=== PATIENT | male | born 1945 | race Caucasian/White ===

== ENCOUNTER 2017-05-18 02:04 | Inpatient (IN) ==
[2017-05-18] MEDS ORDERED: HEPARIN DRIP 25,000 UNITS/500 ML PREMIX IV SCH (07:30)
[2017-05-18] MEDS ORDERED: HEPARIN DRIP 25,000 UNITS/500 ML PREMIX IV ONE (08:32)
[2017-05-18 08:52] LABS: Calcium 8.4 MG/DL (8.5-10.1); Magnesium 2.1 MG/DL (1.8-2.4); Osmolality,Calculated 285.5 MOS/KG (273-304); Potassium 4.4 MMOL/L (3.5-5.1)
[2017-05-18] MEDS ORDERED: SODIUM CHLORIDE 0.9% 1,000 ML IV STA (09:34)
[2017-05-18] MEDS: CLOPIDOGREL 75 MG TABLET PO SCH (09:36)
[2017-05-18] MEDS ORDERED: PANTOPRAZOLE 40 MG TABLET PO ONE (09:38)
[2017-05-18] MEDS ORDERED: METOPROLOL TARTRATE 25 MG TABLET ONE (09:38)
[2017-05-18] MEDS: METOPROLOL TARTRATE 25 MG TABLET PO SCH ×2 (09:42→22:29)
[2017-05-18] MEDS: PANTOPRAZOLE 40 MG TABLET PO SCH (09:42)
[2017-05-18 09:47] LABS: Basophils % 0.1 % (0.0-0.8); Hematocrit 38.2 VOL% (42.0-52.0); Hemoglobin 12.7 GM/DL (14.0-18.0); Immature Granulocytes % 0.6 %; Immature Granulocytes Absolute 0.11 #; Lymphocytes # 1.4 10*3/uL (1.4-4.0); Lymphocytes % 7.7 % (21.2-54.2); Mean Corpuscular HGB Conc 33.2 GM/DL (32-36); Mean Corpuscular Hemoglobin 31 PG (27-34); Mean Corpuscular Volume 92.5 FL (87-102); Mean Platelet Volume 10.1 FL (9.6-12.0); Monocytes # 0.8 10*3/uL (0.11-0.8); Monocytes % 4.4 % (1.7-12.7); Neutrophils # 15.7 10*3/uL (1.4-7.4); Neutrophils % 87.2 % (38.7-73.9); Platelet Count 219 T/CUMM (130-400); Red Blood Count 4.13 MC/CUMM (3.8-5.5); Red Cell Distribution Width 15.1 % (9.3-17.3)
[2017-05-18] MEDS ORDERED: diphenhydrAMINE CAP 25 MG CAPSULE PO ONE (11:17)
[2017-05-18] MEDS ORDERED: POTASSIUM CHLORIDE RIDER 10 MEQ in PREMIX 1 EACH IV PRN (11:17)
[2017-05-18] MEDS ORDERED: MAGNESIUM SULF RIDER 2 GM in PREMIX 1 EACH IV PRN (11:17)
[2017-05-18] MEDS ORDERED: DIAZEPAM 5 MG TABLET PO ONE (11:17)
[2017-05-18] MEDS ORDERED: CLOPIDOGREL 300 MG TABLET PO STA (11:23)
[2017-05-18 11:33] LABS: INR 1.1; PT Patient Result 11.8 SECS
[2017-05-18] MEDS ORDERED: LIDOCAINE 1% 20 ML VIAL ONE (11:47)
[2017-05-18] MEDS ORDERED: ENOXAPARIN 60 MG/0.6 ML SYRINGE ONE (11:47)
[2017-05-18] MEDS ORDERED: HEPARIN/NACL 0.9% 2 UNITS/ML 2,000 ML IV ONE (11:47)
[2017-05-18] MEDS ORDERED: HYDROmorphone 2 MG/1 ML VIAL ONE (11:47)
[2017-05-18] MEDS ORDERED: MIDAZOLAM 2 MG/2 ML VIAL ONE (11:48)
[2017-05-18] MEDS ORDERED: diphenhydrAMINE 50 MG/1 ML VIAL ONE (12:18)
[2017-05-18] MEDS ORDERED: VERAPAMIL 5 MG/2 ML VIAL ONE (12:21)
[2017-05-18] MEDS ORDERED: NITROGLYCERIN DRIP 50 MG/250 ML BOTTLE IV ONE (12:21)
[2017-05-18] MEDS ORDERED: SODIUM CHLORIDE 0.9% 1,000 ML IV SCH (14:00)
[2017-05-18] MEDS: SODIUM CHLORIDE 0.45% 1,000 ML IV SCH (14:20)
[2017-05-18] MEDS: ASPIRIN EC 81 MG TABLET PO SCH (14:20)
[2017-05-18] MEDS: MAGNESIUM CHLORIDE 64 MG TABLET PO SCH (14:21)
[2017-05-18] MEDS ORDERED: clonazePAM 0.5 MG TABLET PO SCH (18:00)
[2017-05-18] MEDS ORDERED: ROSUVASTATIN 20 MG TABLET PO SCH (21:00)
[2017-05-18] MEDS ORDERED: SERTRALINE 50 MG TABLET PO SCH (21:00)
[2017-05-18] MEDS ORDERED: ACETAMINOPHEN 325 MG TABLET PO PRN (21:06)
[2017-05-19] MEDS: SODIUM CHLORIDE 0.45% 1,000 ML IV SCH (01:23)
[2017-05-19] MEDS ORDERED: SODIUM CHLORIDE 0.9% 1,000 ML IV SCH (02:00)
[2017-05-19 04:47] LABS: Basophils % 0.2 % (0.0-0.8); Eosinophils % 0.1 % (0.00-10.9); Hematocrit 38.6 VOL% (42.0-52.0); Hemoglobin 12.7 GM/DL (14.0-18.0); Immature Granulocytes % 0.7 %; Immature Granulocytes Absolute 0.12 #; Lymphocytes # 2.1 10*3/uL (1.4-4.0); Lymphocytes % 11.6 % (21.2-54.2); Mean Corpuscular HGB Conc 32.9 GM/DL (32-36); Mean Corpuscular Hemoglobin 31 PG (27-34); Mean Corpuscular Volume 93.2 FL (87-102); Mean Platelet Volume 10.1 FL (9.6-12.0); Monocytes % 5.5 % (1.7-12.7); Neutrophils # 14.6 10*3/uL (1.4-7.4); Neutrophils % 81.9 % (38.7-73.9); Platelet Count 224 T/CUMM (130-400); Red Blood Count 4.14 MC/CUMM (3.8-5.5); Red Cell Distribution Width 15.4 % (9.3-17.3); White Blood Count 17.9 T/CUMM (4-12)
[2017-05-19 05:15] LABS: Calcium 8.2 MG/DL (8.5-10.1); Magnesium 2.3 MG/DL (1.8-2.4); Osmolality,Calculated 284.3 MOS/KG (273-304); Potassium 4.4 MMOL/L (3.5-5.1)
[2017-05-19 05:28] LABS: Risk Ratio 4.06; VLDL CHOLESTEROL 24.2 MG/DL
[2017-05-19 08:34] VITALS: BP 107/60
[2017-05-19] MEDS: CLOPIDOGREL 75 MG TABLET PO SCH (09:41)
[2017-05-19] MEDS: ASPIRIN EC 81 MG TABLET PO SCH (09:41)
[2017-05-19] MEDS: PANTOPRAZOLE 40 MG TABLET PO SCH (09:41)
[2017-05-19] MEDS: MAGNESIUM CHLORIDE 64 MG TABLET PO SCH (09:42)
[2017-05-19] MEDS: METOPROLOL TARTRATE 25 MG TABLET PO SCH (10:35)
[2017-05-19 10:38] LABS: Apearance,Urine CLEAR (Clear); Bilirubin,Urine Negative (Negative); Blood, Urine Negative (Negative); Glucose,Urine (UA) Negative (Negative); Ketones,Urine Negative (Negative); Mucus,Urine Occasional /LPF (Occasional); Nitrite,Urine Negative (Negative); Protein,Urine Negative; RBC,Urine 1 /HPF (0-4); Squamous Epithelial Cell,Urine Occasional /HPF (0-10); Urine Color Yellow (Yellow); Urine Specific Gravity 1.013 (1.001-1.035); Urine Urobilinogen < 2.0 EU/DL (0.2-1.0); WBC,Urine <1 /HPF (0-6)
== END 2017-05-19 14:21 | disposition home or self-care (01) | DRG 247 ==
LOC: EDBD → EDUNIT# → N.ED 02:04 → N.EDINP 03:25 → N.TELES 13:57
PROC: CLCCHCL (ICD-10-PCS; 2017-05-18 12:45)

== ENCOUNTER 2017-09-30 23:19 | Inpatient (IN) ==
[2017-10-01] MEDS ORDERED: DILTIAZEM 50 MG/10 ML VIAL IV STA (00:24)
[2017-10-01] MEDS ORDERED: DILTIAZEM INJ 100 MG in SODIUM CHLORIDE 0.9% 100 ML IV SCH (00:30)
[2017-10-01 00:31] LABS: Basophils # 0.1 10*3/uL (0.0-0.2); Basophils % 0.7 % (0.0-0.8); Eosinophils # 0.2 10*3/uL (0.0-0.87); Eosinophils % 1.7 % (0.00-10.9); Hematocrit 41.7 VOL% (42.0-52.0); Hemoglobin 13.4 GM/DL (14.0-18.0); Immature Granulocytes % 0.3 %; Immature Granulocytes Absolute 0.04 #; Lymphocytes # 3.1 10*3/uL (1.4-4.0); Mean Corpuscular HGB Conc 32.1 GM/DL (32-36); Mean Corpuscular Hemoglobin 30 PG (27-34); Mean Corpuscular Volume 92.1 FL (87-102); Mean Platelet Volume 9.8 FL (9.6-12.0); Monocytes # 1.2 10*3/uL (0.11-0.8); Neutrophils # 6.9 10*3/uL (1.4-7.4); Neutrophils % 60.3 % (38.7-73.9); Platelet Count 246 T/CUMM (130-400); Red Blood Count 4.53 MC/CUMM (3.8-5.5); Red Cell Distribution Width 15.2 % (9.3-17.3); White Blood Count 11.5 T/CUMM (4-12)
[2017-10-01] MEDS ORDERED: DILTIAZEM 100 MG VIAL.ADD IV ONE (00:31)
[2017-10-01] MEDS ORDERED: SODIUM CHLORIDE 0.9% 100 ML IV ONE (00:33)
[2017-10-01 00:53] LABS: Alanine Aminotransferase 32 U/L (16-61); Albumin 3.8 G/DL (3.4-5.0); Alkaline Phosphatase 72 U/L (45-117); Aspartate Amino Transferase 36 U/L (0-37); Bilirubin,Total < 0.39 MG/DL (0.2-1.0); Blood Urea Nitrogen 24 MG/DL (7-18); Calcium 8.8 MG/DL (8.5-10.1); Glucose 120 MG/DL (74-106); Osmolality,Calculated 281.5 MOS/KG (273-304); Potassium 3.8 MMOL/L (3.5-5.1); Sodium 139 MMOL/L (136-145); Total Protein 7.9 G/DL (6.4-8.3); Troponin I Only < 0.015 NG/ML (0.00-0.045)
[2017-10-01] MEDS ORDERED: SODIUM CHLORIDE 0.9% 1,000 ML IV STA (01:29)
[2017-10-01] MEDS ORDERED: cefTRIAXone 1,000 MG in SODIUM CHLORIDE 0.9% 100 ML IV STA (01:30)
[2017-10-01] MEDS ORDERED: ACETAMINOPHEN 325 MG TABLET PO PRN (02:26)
[2017-10-01] MEDS ORDERED: ONDANSETRON 4 MG/2 ML VIAL IV PRN (02:26)
[2017-10-01] MEDS ORDERED: NITROGLYCERIN SL 0.4 MG TABLET SL PRN (02:30)
[2017-10-01] MEDS ORDERED: SODIUM CHLORIDE 0.9% 1,000 ML IV SCH (02:30)
[2017-10-01 05:59] LABS: Risk Ratio 6.17
[2017-10-01] MEDS: CLOPIDOGREL 75 MG TABLET PO SCH (08:52)
[2017-10-01] MEDS: METOPROLOL TARTRATE 25 MG TABLET PO SCH ×2 (08:52→21:03)
[2017-10-01] MEDS: MULTIVITAMIN (CENTRUM) TABLET PO SCH (08:52)
[2017-10-01] MEDS: PANTOPRAZOLE 40 MG TABLET PO SCH (08:52)
[2017-10-01] MEDS: APIXABAN 5 MG TABLET PO SCH ×2 (08:52→21:03)
[2017-10-01] MEDS: AMIODARONE 200 MG TABLET PO SCH (14:51)
[2017-10-01] MEDS: clonazePAM 0.5 MG TABLET PO SCH (17:39)
[2017-10-01] MEDS: ROSUVASTATIN 20 MG TABLET PO SCH (21:03)
[2017-10-01] MEDS: SERTRALINE 50 MG TABLET PO SCH (21:03)
[2017-10-02] MEDS: AMIODARONE 200 MG TABLET PO SCH ×3 (00:08→21:12)
[2017-10-02 05:15] LABS: Basophils # 0.1 10*3/uL (0.0-0.2); Basophils % 0.6 % (0.0-0.8); Eosinophils # 0.2 10*3/uL (0.0-0.87); Eosinophils % 1.6 % (0.00-10.9); Hematocrit 38.3 VOL% (42.0-52.0); Hemoglobin 12.6 GM/DL (14.0-18.0); Immature Granulocytes % 0.4 %; Immature Granulocytes Absolute 0.04 #; Lymphocytes # 3.2 10*3/uL (1.4-4.0); Mean Corpuscular HGB Conc 32.9 GM/DL (32-36); Mean Corpuscular Hemoglobin 30 PG (27-34); Mean Corpuscular Volume 89.9 FL (87-102); Mean Platelet Volume 9.9 FL (9.6-12.0); Monocytes # 0.9 10*3/uL (0.11-0.8); Monocytes % 8.3 % (1.7-12.7); Neutrophils # 6.1 10*3/uL (1.4-7.4); Neutrophils % 58.1 % (38.7-73.9); Platelet Count 215 T/CUMM (130-400); Red Blood Count 4.26 MC/CUMM (3.8-5.5); Red Cell Distribution Width 15.3 % (9.3-17.3); White Blood Count 10.5 T/CUMM (4-12)
[2017-10-02 05:44] LABS: Calcium 8.5 MG/DL (8.5-10.1); Osmolality,Calculated 285.1 MOS/KG (273-304); Potassium 4.2 MMOL/L (3.5-5.1)
[2017-10-02] MEDS ORDERED: METOPROLOL TARTRATE 5 MG/5 ML VIAL IV ONE ×2 (07:04→07:07)
[2017-10-02] MEDS ORDERED: DILTIAZEM 100 MG VIAL.ADD IV ONE (07:14)
[2017-10-02] MEDS: DILTIAZEM INJ 100 MG in SODIUM CHLORIDE 0.9% 100 ML IV SCH (07:22)
[2017-10-02] MEDS: MULTIVITAMIN (CENTRUM) TABLET PO SCH (09:06)
[2017-10-02] MEDS: CLOPIDOGREL 75 MG TABLET PO SCH (09:06)
[2017-10-02] MEDS: PANTOPRAZOLE 40 MG TABLET PO SCH (09:06)
[2017-10-02] MEDS: METOPROLOL TARTRATE 25 MG TABLET PO SCH ×2 (09:06→21:12)
[2017-10-02] MEDS: APIXABAN 5 MG TABLET PO SCH ×2 (09:06→21:11)
[2017-10-02] MEDS: clonazePAM 0.5 MG TABLET PO SCH (18:27)
[2017-10-02] MEDS ORDERED: PRAMIPEXOLE 0.25 MG TABLET PO SCH (21:00)
[2017-10-02] MEDS: ROSUVASTATIN 20 MG TABLET PO SCH (21:10)
[2017-10-02] MEDS: SERTRALINE 50 MG TABLET PO SCH (21:11)
[2017-10-03 04:42] LABS: Basophils # 0.1 10*3/uL (0.0-0.2); Basophils % 0.6 % (0.0-0.8); Eosinophils # 0.2 10*3/uL (0.0-0.87); Hematocrit 38.2 VOL% (42.0-52.0); Hemoglobin 12.1 GM/DL (14.0-18.0); Immature Granulocytes % 0.4 %; Immature Granulocytes Absolute 0.04 #; Lymphocytes # 3.4 10*3/uL (1.4-4.0); Lymphocytes % 33.1 % (21.2-54.2); Mean Corpuscular HGB Conc 31.7 GM/DL (32-36); Mean Corpuscular Hemoglobin 29 PG (27-34); Mean Corpuscular Volume 92.7 FL (87-102); Monocytes # 0.9 10*3/uL (0.11-0.8); Monocytes % 8.3 % (1.7-12.7); Neutrophils # 5.7 10*3/uL (1.4-7.4); Neutrophils % 55.6 % (38.7-73.9); Platelet Count 212 T/CUMM (130-400); Red Blood Count 4.12 MC/CUMM (3.8-5.5); Red Cell Distribution Width 15.3 % (9.3-17.3); White Blood Count 10.3 T/CUMM (4-12)
[2017-10-03 04:59] LABS: Calcium 8.3 MG/DL (8.5-10.1); Osmolality,Calculated 284.3 MOS/KG (273-304); Potassium 4.1 MMOL/L (3.5-5.1)
[2017-10-03] MEDS: MULTIVITAMIN (CENTRUM) TABLET PO SCH (09:26)
[2017-10-03] MEDS: PANTOPRAZOLE 40 MG TABLET PO SCH (09:26)
[2017-10-03] MEDS: APIXABAN 5 MG TABLET PO SCH (09:26)
[2017-10-03] MEDS: AMIODARONE 200 MG TABLET PO SCH (09:26)
[2017-10-03] MEDS: CLOPIDOGREL 75 MG TABLET PO SCH (09:26)
[2017-10-03] MEDS: DILTIAZEM INJ 100 MG in SODIUM CHLORIDE 0.9% 100 ML IV SCH (09:26)
[2017-10-03] MEDS: METOPROLOL TARTRATE 25 MG TABLET PO SCH (09:26)
[2017-10-03] MEDS ORDERED: ASPIRIN EC 81 MG TABLET PO SCH (12:00)
[2017-10-03 12:10] VITALS: BP 125/65
== END 2017-10-03 15:47 | disposition home or self-care (01) | DRG 309 ==
LOC: N.ED 23:19 → SUATTDRO 10-01 01:34 → N.EDINP 10-01 01:34 → N.TELEN 10-01 02:48
PROVIDERS: ADMIT Internal Medicine; ATTEND Internal Medicine Geriatric Medicine

== ENCOUNTER 2017-10-06 15:31 | Inpatient (IN) ==
[2017-10-06] MEDS ORDERED: SODIUM CHLORIDE 0.9% 500 ML IV STA (16:07)
[2017-10-06] MEDS ORDERED: DILTIAZEM 50 MG/10 ML VIAL IV STA (16:07)
[2017-10-06] MEDS ORDERED: ASPIRIN 325 MG TABLET PO STA (16:07)
[2017-10-06 16:15] LABS: Basophils # 0.1 10*3/uL (0.0-0.2); Basophils % 0.6 % (0.0-0.8); Eosinophils # 0.2 10*3/uL (0.0-0.87); Eosinophils % 1.6 % (0.00-10.9); Hematocrit 40.9 VOL% (42.0-52.0); Hemoglobin 13.6 GM/DL (14.0-18.0); Immature Granulocytes % 0.5 %; Immature Granulocytes Absolute 0.05 #; Lymphocytes # 2.9 10*3/uL (1.4-4.0); Lymphocytes % 26.5 % (21.2-54.2); Mean Corpuscular HGB Conc 33.3 GM/DL (32-36); Mean Corpuscular Hemoglobin 30 PG (27-34); Mean Corpuscular Volume 89.3 FL (87-102); Mean Platelet Volume 9.9 FL (9.6-12.0); Monocytes # 0.9 10*3/uL (0.11-0.8); Monocytes % 8.3 % (1.7-12.7); Neutrophils # 6.7 10*3/uL (1.4-7.4); Neutrophils % 62.5 % (38.7-73.9); Platelet Count 267 T/CUMM (130-400); Red Blood Count 4.58 MC/CUMM (3.8-5.5); Red Cell Distribution Width 15.7 % (9.3-17.3); White Blood Count 10.8 T/CUMM (4-12)
[2017-10-06] MEDS ORDERED: DILTIAZEM INJ 100 MG in SODIUM CHLORIDE 0.9% 100 ML IV SCH (16:30)
[2017-10-06 16:47] LABS: Alanine Aminotransferase 32 U/L (16-61); Albumin 3.8 G/DL (3.4-5.0); Alkaline Phosphatase 80 U/L (45-117); Aspartate Amino Transferase 41 U/L (0-37); Blood Urea Nitrogen 23 MG/DL (7-18); Calcium 8.7 MG/DL (8.5-10.1); Glucose 132 MG/DL (74-106); Osmolality,Calculated 284.4 MOS/KG (273-304); Potassium 4.5 MMOL/L (3.5-5.1); Sodium 140 MMOL/L (136-145); Total Protein 7.3 G/DL (6.4-8.3); Troponin I Only < 0.015 NG/ML (0.00-0.045)
[2017-10-06] MEDS ORDERED: NITROGLYCERIN SL 0.4 MG TABLET SL PRN (18:36)
[2017-10-06] MEDS ORDERED: ONDANSETRON 4 MG/2 ML VIAL IV PRN (18:36)
[2017-10-06] MEDS ORDERED: MORPHINE 4 MG/1 ML VIAL IV PRN (18:36)
[2017-10-06] MEDS ORDERED: POTASSIUM CHLORIDE 20 MEQ TABLET PO PRN (18:36)
[2017-10-06] MEDS ORDERED: MAGNESIUM SULF RIDER 4 GM in PREMIX 1 EACH IV PRN (18:36)
[2017-10-06] MEDS ORDERED: MAGNESIUM SULF RIDER 2 GM in PREMIX 1 EACH IV PRN (18:36)
[2017-10-06 19:52] LABS: Troponin I Only < 0.015 NG/ML (0.00-0.045)
[2017-10-06] MEDS ORDERED: METOPROLOL TARTRATE 25 MG TABLET PO SCH (21:00)
[2017-10-06] MEDS ORDERED: ASPIRIN EC 81 MG TABLET PO SCH (21:00)
[2017-10-06] MEDS: SODIUM CHLORIDE 0.9% 1,000 ML IV SCH (21:42)
[2017-10-06] MEDS: AMIODARONE 200 MG TABLET PO SCH (21:43)
[2017-10-06] MEDS: ROSUVASTATIN 20 MG TABLET PO SCH (21:43)
[2017-10-06] MEDS: PRAMIPEXOLE 0.25 MG TABLET PO SCH (21:43)
[2017-10-06] MEDS: NITROGLYCERIN 2% OINT 1 INCH/GM PACK TOP SCH (21:43)
[2017-10-06] MEDS: APIXABAN 5 MG TABLET PO SCH (21:43)
[2017-10-06 22:47] LABS: Troponin I Only < 0.015 NG/ML (0.00-0.045)
[2017-10-07 00:52] LABS: Basophils # 0.1 10*3/uL (0.0-0.2); Basophils % 0.5 % (0.0-0.8); Eosinophils # 0.2 10*3/uL (0.0-0.87); Eosinophils % 1.7 % (0.00-10.9); Hematocrit 36.6 VOL% (42.0-52.0); Hemoglobin 12.1 GM/DL (14.0-18.0); Immature Granulocytes % 0.3 %; Immature Granulocytes Absolute 0.03 #; Lymphocytes # 3.2 10*3/uL (1.4-4.0); Lymphocytes % 29.4 % (21.2-54.2); Mean Corpuscular HGB Conc 33.1 GM/DL (32-36); Mean Corpuscular Hemoglobin 30 PG (27-34); Mean Corpuscular Volume 90.8 FL (87-102); Mean Platelet Volume 9.7 FL (9.6-12.0); Monocytes # 1.1 10*3/uL (0.11-0.8); Monocytes % 9.6 % (1.7-12.7); Neutrophils # 6.4 10*3/uL (1.4-7.4); Neutrophils % 58.5 % (38.7-73.9); Platelet Count 223 T/CUMM (130-400); Red Blood Count 4.03 MC/CUMM (3.8-5.5); Red Cell Distribution Width 15.6 % (9.3-17.3); White Blood Count 10.9 T/CUMM (4-12)
[2017-10-07] MEDS: NITROGLYCERIN 2% OINT 1 INCH/GM PACK TOP SCH ×5 (00:52→23:37)
[2017-10-07 01:27] LABS: Troponin I Only < 0.015 NG/ML (0.00-0.045)
[2017-10-07 01:35] LABS: Alanine Aminotransferase 26 U/L (16-61); Albumin 3.3 G/DL (3.4-5.0); Alkaline Phosphatase 73 U/L (45-117); Aspartate Amino Transferase 24 U/L (0-37); Bilirubin,Total < 0.39 MG/DL (0.2-1.0); Blood Urea Nitrogen 24 MG/DL (7-18); Cholesterol 111 MG/DL (50-200); Glucose 118 MG/DL (74-106); HDL Cholesterol 24 MG/DL (40-60); Osmolality,Calculated 290.8 MOS/KG (273-304); Potassium 3.5 MMOL/L (3.5-5.1); Risk Ratio 4.63; Sodium 144 MMOL/L (136-145); Total Protein 6.3 G/DL (6.4-8.3); Triglycerides 225 MG/DL (2-150)
[2017-10-07 04:04] LABS: Apearance,Urine CLEAR (Clear); Bilirubin,Urine Negative (Negative); Blood, Urine Negative (Negative); Glucose,Urine (UA) Negative (Negative); Ketones,Urine Negative (Negative); Nitrite,Urine Negative (Negative); Protein,Urine Negative; RBC,Urine <1 /HPF (0-4); Urine Color Straw (Yellow); Urine Specific Gravity 1.009 (1.001-1.035); Urine Urobilinogen < 2.0 EU/DL (0.2-1.0); WBC,Urine <1 /HPF (0-6)
[2017-10-07 04:20] LABS: Barbiturates Screen,Urine Negative (Negative); Benzodiazepines Screen,Urine Negative (Negative); Cannabinoid Screen,Urine Negative (Negative); Opiate Screen,Urine Negative (Negative); Phencyclidine Screen,Urine Negative (Negative)
[2017-10-07] MEDS ORDERED: AMIODARONE INJ 450 MG in DEXTROSE 5% 241 ML IV SCH (08:30)
[2017-10-07] MEDS ORDERED: ASPIRIN EC 81 MG TABLET PO SCH (09:00)
[2017-10-07] MEDS ORDERED: PANTOPRAZOLE 40 MG TABLET PO SCH (09:00)
[2017-10-07] MEDS: SERTRALINE 100 MG TABLET PO SCH (09:35)
[2017-10-07] MEDS: AMIODARONE 200 MG TABLET PO SCH ×2 (09:35→21:33)
[2017-10-07] MEDS: MULTIVITAMIN (CENTRUM) TABLET PO SCH (09:35)
[2017-10-07] MEDS: APIXABAN 5 MG TABLET PO SCH ×2 (09:35→21:33)
[2017-10-07] MEDS: METOPROLOL SUCCINATE XL 50 MG TABLET PO SCH ×2 (09:35→21:34)
[2017-10-07] MEDS: ASPIRIN CHEW 81 MG TABLET PO SCH (09:35)
[2017-10-07] MEDS: SODIUM CHLORIDE 0.9% 1,000 ML IV SCH (11:41)
[2017-10-07] MEDS: clonazePAM 0.5 MG TABLET PO SCH (12:14)
[2017-10-07] MEDS: CLOPIDOGREL 75 MG TABLET PO SCH (12:15)
[2017-10-07] MEDS: PANTOPRAZOLE 40 MG TABLET PO SCH (12:15)
[2017-10-07] MEDS: AMIODARONE INJ 450 MG in DEXTROSE 5% 241 ML IV SCH (17:30)
[2017-10-07] MEDS: ROSUVASTATIN 20 MG TABLET PO SCH (21:33)
[2017-10-07] MEDS: PRAMIPEXOLE 0.25 MG TABLET PO SCH (21:33)
[2017-10-08] MEDS: SODIUM CHLORIDE 0.9% 1,000 ML IV SCH (04:39)
[2017-10-08] MEDS: NITROGLYCERIN 2% OINT 1 INCH/GM PACK TOP SCH ×3 (05:10→17:27)
[2017-10-08 05:37] LABS: Calcium 8.2 MG/DL (8.5-10.1); Free T4 (Free Thyroxine) 0.79 NG/DL (0.76-1.46); Osmolality,Calculated 283.1 MOS/KG (273-304); Potassium 4.5 MMOL/L (3.5-5.1); Thyroid Stimulating Hormone 10.5 uIU/ml (0.358-3.74)
[2017-10-08] MEDS: AMIODARONE INJ 450 MG in DEXTROSE 5% 241 ML IV SCH (06:24)
[2017-10-08] MEDS ORDERED: MEPERIDINE 50 MG/1 ML VIAL IV ONE (11:00)
[2017-10-08] MEDS ORDERED: MIDAZOLAM 10 MG/2 ML VIAL IV ONE (11:05)
[2017-10-08] MEDS ORDERED: NALOXONE 0.4 MG/ML VIAL ONE (14:18)
[2017-10-08] MEDS ORDERED: FLUMAZENIL 0.5 MG/5 ML VIAL IV ONE (14:18)
[2017-10-08] MEDS: METOPROLOL SUCCINATE XL 50 MG TABLET PO SCH ×2 (15:37→20:53)
[2017-10-08] MEDS: SERTRALINE 100 MG TABLET PO SCH (15:43)
[2017-10-08] MEDS: CLOPIDOGREL 75 MG TABLET PO SCH (15:43)
[2017-10-08] MEDS: PANTOPRAZOLE 40 MG TABLET PO SCH (15:44)
[2017-10-08] MEDS: MULTIVITAMIN (CENTRUM) TABLET PO SCH (15:44)
[2017-10-08] MEDS: APIXABAN 5 MG TABLET PO SCH ×2 (15:44→21:00)
[2017-10-08] MEDS: ASPIRIN CHEW 81 MG TABLET PO SCH (15:44)
[2017-10-08] MEDS: clonazePAM 0.5 MG TABLET PO SCH (15:44)
[2017-10-08] MEDS: AMIODARONE 200 MG TABLET PO SCH ×2 (15:48→20:53)
[2017-10-08] MEDS: ROSUVASTATIN 20 MG TABLET PO SCH (20:52)
[2017-10-08] MEDS: PRAMIPEXOLE 0.25 MG TABLET PO SCH (20:53)
[2017-10-09] MEDS: NITROGLYCERIN 2% OINT 1 INCH/GM PACK TOP SCH ×3 (05:12→11:15)
[2017-10-09 08:02] VITALS: BP 133/65
[2017-10-09] MEDS: SERTRALINE 100 MG TABLET PO SCH (08:48)
[2017-10-09] MEDS: ASPIRIN CHEW 81 MG TABLET PO SCH (08:48)
[2017-10-09] MEDS: APIXABAN 5 MG TABLET PO SCH (08:48)
[2017-10-09] MEDS: AMIODARONE 200 MG TABLET PO SCH (08:48)
[2017-10-09] MEDS: MULTIVITAMIN (CENTRUM) TABLET PO SCH (08:48)
[2017-10-09] MEDS: METOPROLOL SUCCINATE XL 50 MG TABLET PO SCH (08:48)
[2017-10-10] MEDS ORDERED: AMIODARONE 200 MG TABLET PO SCH (09:00)
== END 2017-10-09 11:20 | disposition home or self-care (01) | DRG 310 ==
LOC: N.ED 15:31 → N.EDINP 15:31 → N.TELES 18:10
PROVIDERS: ADMIT Internal Medicine Cardiovascular Disease; ATTEND Internal Medicine Cardiovascular Disease

== ENCOUNTER 2017-12-05 13:42 | Inpatient (IN) ==
[2017-12-05] MEDS ORDERED: PANTOPRAZOLE 40 MG VIAL IV STA (14:51)
[2017-12-05] MEDS ORDERED: ONDANSETRON 4 MG/2 ML VIAL IV PRN ×2 (14:51→17:07)
[2017-12-05 15:19] LABS: Basophils # 0.1 10*3/uL (0.0-0.2); Basophils % 0.6 % (0.0-0.8); Eosinophils # 0.2 10*3/uL (0.0-0.87); Eosinophils % 1.9 % (0.00-10.9); Hematocrit 35.4 VOL% (42.0-52.0); Hemoglobin 11.2 GM/DL (14.0-18.0); Immature Granulocytes % 0.3 %; Immature Granulocytes Absolute 0.02 #; Lymphocytes # 2.3 10*3/uL (1.4-4.0); Lymphocytes % 29.4 % (21.2-54.2); Mean Corpuscular HGB Conc 31.6 GM/DL (32-36); Mean Corpuscular Hemoglobin 29 PG (27-34); Mean Corpuscular Volume 92.2 FL (87-102); Mean Platelet Volume 9.8 FL (9.6-12.0); Monocytes # 0.8 10*3/uL (0.11-0.8); Monocytes % 10.7 % (1.7-12.7); Neutrophils # 4.5 10*3/uL (1.4-7.4); Neutrophils % 57.1 % (38.7-73.9); Platelet Count 215 T/CUMM (130-400); Red Blood Count 3.84 MC/CUMM (3.8-5.5); Red Cell Distribution Width 16.4 % (9.3-17.3); White Blood Count 7.9 T/CUMM (4-12)
[2017-12-05 15:28] LABS: Partial Thromboplastin Time 25.9 SECS (0-40)
[2017-12-05] MEDS: SODIUM CHLORIDE 0.9% 1,000 ML IV SCH (15:28)
[2017-12-05 16:07] LABS: Alanine Aminotransferase 24 U/L (16-61); Albumin 3.3 G/DL (3.4-5.0); Alkaline Phosphatase 61 U/L (45-117); Aspartate Amino Transferase 27 U/L (0-37); Bilirubin,Total < 0.39 MG/DL (0.2-1.0); Blood Urea Nitrogen 22 MG/DL (7-18); Calcium 8.6 MG/DL (8.5-10.1); Glucose 107 MG/DL (74-106); Osmolality,Calculated 283.3 MOS/KG (273-304); Potassium 4.3 MMOL/L (3.5-5.1); Sodium 141 MMOL/L (136-145); Total Protein 7.1 G/DL (6.4-8.3)
[2017-12-05] MEDS ORDERED: ACETAMINOPHEN 325 MG TABLET PO PRN (17:07)
[2017-12-05 17:38] LABS: Hematocrit 34.5 VOL% (42.0-52.0); Hemoglobin 10.8 GM/DL (14.0-18.0)
[2017-12-05 17:51] LABS: Partial Thromboplastin Time 25.9 SECS (0-40)
[2017-12-05] MEDS: clonazePAM 0.5 MG TABLET PO SCH (18:08)
[2017-12-05 18:14] LABS: Thyroid Stimulating Hormone 5.59 uIU/ml (0.358-3.74)
[2017-12-05] MEDS: METOPROLOL TARTRATE 25 MG TABLET PO SCH (20:25)
[2017-12-05] MEDS: PANTOPRAZOLE 40 MG VIAL IV SCH (20:25)
[2017-12-05] MEDS: ROSUVASTATIN 20 MG TABLET PO SCH (20:25)
[2017-12-05] MEDS: PRAMIPEXOLE 0.25 MG TABLET PO SCH (20:25)
[2017-12-05 22:45] LABS: Hemoglobin 10.7 GM/DL (14.0-18.0)
[2017-12-06] MEDS: SODIUM CHLORIDE 0.9% 1,000 ML IV SCH ×3 (00:45→17:50)
[2017-12-06 06:05] LABS: Calcium 8.1 MG/DL (8.5-10.1); Osmolality,Calculated 287.8 MOS/KG (273-304); Potassium 4.3 MMOL/L (3.5-5.1)
[2017-12-06 07:35] LABS: Hematocrit 33.2 VOL% (42.0-52.0); Hemoglobin 10.4 GM/DL (14.0-18.0)
[2017-12-06] MEDS: PANTOPRAZOLE 40 MG VIAL IV SCH ×2 (09:04→20:09)
[2017-12-06] MEDS: MULTIVITAMIN (CENTRUM) TABLET PO SCH ×2 (09:06→12:13)
[2017-12-06] MEDS: METOPROLOL TARTRATE 25 MG TABLET PO SCH ×3 (09:06→20:25)
[2017-12-06] MEDS: SERTRALINE 100 MG TABLET PO SCH ×2 (09:06→12:13)
[2017-12-06] MEDS: AMIODARONE 200 MG TABLET PO SCH ×2 (09:06→12:13)
[2017-12-06 10:41] LABS: Hematocrit 34.2 VOL% (42.0-52.0); Hemoglobin 10.8 GM/DL (14.0-18.0)
[2017-12-06] MEDS: clonazePAM 0.5 MG TABLET PO SCH (12:14)
[2017-12-06] MEDS: CLOPIDOGREL 75 MG TABLET PO SCH (12:14)
[2017-12-06] MEDS: PRAMIPEXOLE 0.25 MG TABLET PO SCH (20:25)
[2017-12-06] MEDS: ROSUVASTATIN 20 MG TABLET PO SCH (20:25)
[2017-12-07] MEDS: SODIUM CHLORIDE 0.9% 1,000 ML IV SCH ×2 (01:50→08:42)
[2017-12-07 06:27] LABS: Basophils # 0.1 10*3/uL (0.0-0.2); Basophils % 0.6 % (0.0-0.8); Eosinophils # 0.2 10*3/uL (0.0-0.87); Eosinophils % 1.9 % (0.00-10.9); Hematocrit 33.3 VOL% (42.0-52.0); Hemoglobin 10.6 GM/DL (14.0-18.0); Immature Granulocytes % 0.4 %; Immature Granulocytes Absolute 0.03 #; Lymphocytes # 2.1 10*3/uL (1.4-4.0); Lymphocytes % 25.6 % (21.2-54.2); Mean Corpuscular HGB Conc 31.8 GM/DL (32-36); Mean Corpuscular Hemoglobin 29 PG (27-34); Mean Corpuscular Volume 90.7 FL (87-102); Mean Platelet Volume 10.3 FL (9.6-12.0); Monocytes # 0.7 10*3/uL (0.11-0.8); Monocytes % 8.4 % (1.7-12.7); Neutrophils # 5.1 10*3/uL (1.4-7.4); Neutrophils % 63.1 % (38.7-73.9); Platelet Count 195 T/CUMM (130-400); Red Blood Count 3.67 MC/CUMM (3.8-5.5); Red Cell Distribution Width 16.4 % (9.3-17.3)
[2017-12-07 06:43] LABS: Calcium 7.7 MG/DL (8.5-10.1); Potassium 4.2 MMOL/L (3.5-5.1)
[2017-12-07] MEDS: PANTOPRAZOLE 40 MG VIAL IV SCH ×2 (08:37→20:55)
[2017-12-07] MEDS: METOPROLOL TARTRATE 25 MG TABLET PO SCH ×2 (08:39→20:43)
[2017-12-07] MEDS: AMIODARONE 200 MG TABLET PO SCH (08:39)
[2017-12-07] MEDS ORDERED: LIDOCAINE 2% 5 ML VIAL ONE (10:00)
[2017-12-07] MEDS ORDERED: PROPOFOL 200 MG/20 ML VIAL IV ONE (10:00)
[2017-12-07] MEDS: SERTRALINE 100 MG TABLET PO SCH (10:12)
[2017-12-07] MEDS: MULTIVITAMIN (CENTRUM) TABLET PO SCH (10:12)
[2017-12-07] MEDS: CLOPIDOGREL 75 MG TABLET PO SCH (13:37)
[2017-12-07] MEDS: clonazePAM 0.5 MG TABLET PO SCH (13:37)
[2017-12-07] MEDS: ROSUVASTATIN 20 MG TABLET PO SCH (20:43)
[2017-12-07] MEDS: APIXABAN 5 MG TABLET PO SCH (20:45)
[2017-12-07] MEDS ORDERED: PRAMIPEXOLE 0.25 MG TABLET PO SCH (21:00)
[2017-12-08 05:03] LABS: Basophils # 0.1 10*3/uL (0.0-0.2); Basophils % 0.5 % (0.0-0.8); Eosinophils # 0.1 10*3/uL (0.0-0.87); Eosinophils % 1.1 % (0.00-10.9); Hematocrit 34.3 VOL% (42.0-52.0); Hemoglobin 10.7 GM/DL (14.0-18.0); Immature Granulocytes % 0.4 %; Immature Granulocytes Absolute 0.04 #; Lymphocytes # 1.9 10*3/uL (1.4-4.0); Lymphocytes % 17.8 % (21.2-54.2); Mean Corpuscular HGB Conc 31.2 GM/DL (32-36); Mean Corpuscular Hemoglobin 29 PG (27-34); Mean Corpuscular Volume 93.2 FL (87-102); Mean Platelet Volume 10.2 FL (9.6-12.0); Monocytes # 0.8 10*3/uL (0.11-0.8); Monocytes % 7.8 % (1.7-12.7); Neutrophils # 7.7 10*3/uL (1.4-7.4); Neutrophils % 72.4 % (38.7-73.9); Platelet Count 202 T/CUMM (130-400); Red Blood Count 3.68 MC/CUMM (3.8-5.5); Red Cell Distribution Width 16.4 % (9.3-17.3); White Blood Count 10.6 T/CUMM (4-12)
[2017-12-08] MEDS: METOPROLOL TARTRATE 25 MG TABLET PO SCH (08:19)
[2017-12-08] MEDS: AMIODARONE 200 MG TABLET PO SCH (08:19)
[2017-12-08] MEDS: PANTOPRAZOLE 40 MG VIAL IV SCH ×2 (08:19→09:18)
[2017-12-08] MEDS: MULTIVITAMIN (CENTRUM) TABLET PO SCH (08:19)
[2017-12-08] MEDS: APIXABAN 5 MG TABLET PO SCH ×2 (08:20→09:12)
[2017-12-08] MEDS: SERTRALINE 100 MG TABLET PO SCH (08:20)
[2017-12-08 11:53] VITALS: BP 139/87
== END 2017-12-08 12:49 | disposition home or self-care (01) | DRG 813 ==
LOC: N.ED 13:42 → N.EDINP 16:09 → N.2E 16:45
PROVIDERS: ADMIT Internal Medicine; ATTEND Internal Medicine